=== PATIENT | female | born 1990 | race African-American/Black ===

== ENCOUNTER 2018-10-27 07:50 | Day surgery (SDC) | payer OTHER ==
[2018-10-27] MEDS ORDERED: Ringers Lactate 1,000 ML IV ONE (08:22)
[2018-10-27 08:43] LABS: Specific Gravity >= 1.030 (1.005-1.030)
[2018-10-27 08:55] VITALS: O2SAT 100
[2018-10-27] MEDS ORDERED: PROPOFOL 200 MG/20 ML VIAL IV ONE (09:40)
--- NOTE | 2018-10-27 11:41 | ENDO RPT ---
[address], [address] COLONOSCOPY PROCEDURE REPORT EXAM DATE: 10/27/2018 PATIENT NAME: Anay Agee MR #: [id number] BIRTHDATE: 1990 ATTENDING: Karlos Figueroa Dr STATUS: outpatient MEDICAL COMMUNICATION SPECIALIST: Kay Mancia RN, Viri Cortez RN, and Maria Esther Márquez INDICATIONS: The patient is a 28 yr old Female here for a colonoscopy due to abdominal pain PROCEDURE PERFORMED: Colonoscopy MEDICATIONS: Per Anesthesia. ESTIMATED BLOOD LOSS: None CONSENT: The patient understands the risks and benefits of the procedure and understands that these risks include, but are not limited to: sedation, allergic reaction, infection, perforation and/or bleeding. Alternative means of evaluation and treatment include, among others: physical exam, x-rays, and/or surgical intervention. The patient elects to proceed with this endoscopic procedure. DESCRIPTION OF PROCEDURE: During intra-op preparation period all mechanical medical equipment was checked for proper function. Hand hygiene and appropriate measures for infection prevention was taken. Procedure, possible complications, alternatives including, but not limited to possibility of bleeding, perforation, tear, infection, sepsis, need for surgery, need for blood transfusion, were explained to the patient. After the risks, benefits and alternatives of the procedure were thoroughly explained, Informed consent was verified, confirmed and timeout was successfully executed by the treatment team. The patient was placed in the left lateral position. A digital rectal exam was performed and revealed no abnormalities of the rectum. After appropriate level of anesthesia, the scope was passed. The [id number] ([id number]) endoscope was introduced through the anus and advanced to the terminal ileum which was intubated for a short distance. The quality of the prep was good. The instrument was then slowly withdrawn as the colon was fully examined. Scope withdrawal time was 7 minutes. COLON FINDINGS: Small internal hemorrhoids were found. Retroflexed views revealed small hemorrhoids. The scope was then completely withdrawn from the patient and the procedure terminated. ADVERSE EVENTS: There were no complications. IMPRESSIONS: 1. Small internal hemorrhoids 2. Intubation to terminal ileum RECOMMENDATIONS: 1. fiber rich diet 2. await results of prior PCP ordered CT abdomen 3. 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
[2018-10-27 14:35] VITALS: BP 130/76; TEMP 97.5
== END 2018-10-27 11:22 | disposition home or self-care (01) ==
LOC: OR 07:50
PROVIDERS: ATTEND Internal Medicine Gastroenterology
PROC: 0DJD8ZZ Inspection of Lower Intestinal Tract, Via Natural or Artificial Opening Endoscopic (ICD-10-PCS; principal; 2018-10-27 10:00)
DX: R10.31 Right lower quadrant pain (principal); R10.32 Left lower quadrant pain; K64.8 Other hemorrhoids; E66.9 Obesity, unspecified; Z87.891 Personal history of nicotine dependence; Z68.42 Body mass index [BMI] 45.0-49.9, adult
CPT/HCPCS: 81025; J2704

== ENCOUNTER 2019-03-17 07:17 | Emergency (ER) | payer OTHER ==
[2019-03-17 08:38] LABS: Absolute Lymphocytes (CBC) 4.8 K/uL (0.7-4.9); Absolute Monocytes 0.5 K/uL (0.1-1.3); Absolute Neutrophil 2.2 K/uL (1.8-8.0); Basophils % 0.5 % (0-1.3); Eosinophils % 2.6 % (0-4.4); Hematocrit 38.8 % (36.0-45.0); Lymphocytes % 62.2 % (15.3-44.8); MPV 9.7 fL (7.6-11.3); Monocytes % 6.3 % (3.3-12.3); RBC Red Blood Cell Count 4.93 M/uL (3.86-4.86)
[2019-03-17 08:41] LABS: ALT/SGPT 33 U/L (12-78); AST/SGOT 18 U/L (15-37); Albumin 3.4 g/dL (3.4-5.0); Alkaline Phosphatase 57 U/L (45-117); BUN Blood Urea Nitrogen 11 mg/dL (7-18); Bicarbonate 27 mmol/L (21-32); Bilirubin Direct < 0.1 mg/dL (0-0.2); Bilirubin Total 0.2 mg/dL (0.2-1.0); Glucose Level 87 mg/dL (74-106); Lipase 234 U/L (73-393); Protein, Total 8.1 g/dL (6.4-8.2); Sodium Level 139 mmol/L (136-145)
[2019-03-17] MEDS ORDERED: MAGNE/ALUM HYDROXD 30 ML UCUP ONE (08:53)
[2019-03-17] MEDS ORDERED: LIDOCAINE VISCOUS 2% SOLN 15 ML UDC ONE (08:53)
--- NOTE | 2019-03-17 08:57 | RAD REPORT ---
EXAM DESCRIPTION: US - Abdomen Exam Limited - 03/17/2019 7:52 am CLINICAL HISTORY: ABD PAIN COMPARISON: No comparisons FINDINGS: The gallbladder demonstrates no gallstones. No pericholecystic fluid or gallbladder wall t hickening. The common bile duct is normal measuring 3 mm. The liver demonstrates no findings of intrahepatic biliary dilatation. IMPRESSION: Unremarkable examination.
[2019-03-17 09:27] LABS: Urine Blood 3+ (NEG); Urine Glucose NEGATIVE (NEG); Urine Protein NEGATIVE (NEG)
[2019-03-17 09:46] LABS: Urine Bacteria <20 /HPF (<20); Urine RBC >50 /HPF (NONE SEEN)
[2019-03-17 09:47] LABS: Urine Culture Reflex Order NOT NEEDED
--- NOTE | 2019-03-17 10:02 | RAD REPORT ---
EXAM DESCRIPTION: CTAbdomen Pelvis W Contrast - 03/17/2019 9:34 am CLINICAL HISTORY: Abdominal pain. ABD PAIN COMPARISON: Abdomen Pelvis W Contrast dated 09/30/2018 TECHNIQUE: Biphasic CT imaging of the abdomen and pelvis was performed with 100 ml non-ionic IV cont rast. All CT scans are performed using dose optimization technique as appropriate and may include automated exposure control or mA/KV adjustment according to patient size. FINDINGS: The lung bases are clear. The liver, spleen, pancreas, adrenal glands and kidneys are within normal limits. No bowel obstruction, free air, free fluid or abscess. The appendix is normal. No evidence of signi ficant lymphadenopathy. No suspicious bony findings. IMPRESSION: No acute intra-abdominal or pelvic finding.
--- NOTE | 2019-03-17 10:17 | ER ---
Nurse's Notes [facility] Name: Anay Agee Age: 29 yrs Sex: Female : 1990 Arrival Date: 03/17/2019 Time: 07:21 Bed 15 Private MD: John Harper H Diagnosis: Epigastric pain Presentation: 03/17 07:25 Presenting complaint: Patient states: i started having abdominal (epigastric area, R hj upper and L upper abd) since the weekend and it doesn't go away, denies N/V; denies fever and chills; denies diarrhea/ constipation;. Transition of care: patient was not received from another setting of care. Onset of symptoms was March 17, 2019. Risk Assessment: Do you want to hurt yourself or someone else? Patient reports no desire to harm self or others. Initial Sepsis Screen: Does the patient meet any 2 criteria? No. Patient's initial sepsis screen is negative. Does the patient have a suspected source of infection? No. Patient's initial sepsis screen is negative. Care prior to arrival: None. 07:25 Method Of Arrival: Ambulatory 07:25 Acuity: SHER 3 hj Triage Assessment: 07:28 General: Appears in no apparent distress. uncomfortable, obese, Behavior is calm, hj cooperative, appropriate for age. Pain: Complains of pain in epigastric area, right upper quadrant and left upper quadrant. 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 - Social history:: Smoking status: Patient/guardian denies using tobacco, Patient uses alcohol. - Ebola Screening: : Patient negative for fever greater than or equal to 101.5 degrees Fahrenheit, and additional compatible Ebola Virus Disease symptoms Patient denies exposure to infectious person Patient denies travel to an Ebola-affected area in the 21 days before illness onset. - Family history:: not pertinent. - Hospitalizations: : No recent hospitalization is reported. Screenin:28 Abuse screen: Denies threats or abuse. Denies injuries from another. Nutritional hj screening: No deficits noted. Tuberculosis screening: No symptoms or risk factors identified. Fall Risk None identified. Assessment: 07:29 GI: Bowel sounds Abd is soft. hj 08:22 General: Appears in no apparent distress. comfortable, Behavior is calm, cooperative, ph appropriate for age, Denies fever. Pain: Complains of pain in epigastric area. Neuro: Level of Consciousness is awake, alert, obeys commands, Oriented to person, place, time, situation. Cardiovascular: Capillary refill < 3 seconds in bilateral fingers Patient's skin is warm and dry. Respiratory: Airway is patent Respiratory effort is even, unlabored, Respiratory pattern is regular, symmetrical. GI: Abdomen is round non-distended, Bowel sounds present X 4 quads. Abd is soft X 4 quads Reports epigastric pain, nausea, Patient currently denies diarrhea, vomiting. : No signs and/or symptoms were reported regarding the genitourinary system. Derm: Skin is intact, is healthy with good turgor, Skin is pink, warm \T\ dry. Musculoskeletal: Circulation, motion, and sensation intact. Range of motion: intact in all extremities. 09:30 Reassessment: Patient appears in no apparent distress at this time. Patient and/or ph family updated on plan of care and expected duration. Pain level reassessed. Patient is alert, oriented x 3, equal unlabored respirations, skin warm/dry/pink. Pt resting quietly, awaiting CT results. 10:30 Reassessment: Patient appears in no apparent distress at this time. Patient and/or ph family updated on plan of care and expected duration. Pain level reassessed. Patient is alert, oriented x 3, equal unlabored respirations, skin warm/dry/pink. Pt resting quietly. Vital Signs: 07:27 BP 127 / 84; Pulse 88; Resp 16; Temp 98.5(O); Pulse Ox 100% on R/A; Weight 142.43 kg; hj Height 5 ft. 6 in. (167.64 cm); 08:24 BP 122 / 78; Pulse 81; Resp 16; Pulse Ox 99% on R/A; ph 10:00 BP 130 / 69; Pulse 83; Resp 18; Pulse Ox 96% on R/A; ph 10:45 BP 127 / 64; Pulse 82; Resp 18; Temp 97.9; Pulse Ox 99% on R/A; ph 07:27 Body Mass Index 50.68 (142.43 kg, 167.64 cm) ED Course: 07:21 Patient arrived in ED. mr 07:21 John Harper DO is Private Physician. mr 07:21 Tommy Malcolm MD is Attending Physician. rn 07:27 Triage completed. hj 07:29 Arm band placed on. hj 07:30 Patient has correct armband on for positive identification. Placed in gown. Bed in low hj position. Call light in reach. Side rails up X 1. 07:38 Viri Leavitt, RN is Primary Nurse. ph 07:53 US Abdomen Limited In Process Unspecified. EDMS 08:00 Inserted saline lock: 20 gauge in right antecubital area, using aseptic technique. ph Blood collected. 09:34 CT Abd/Pelvis - IV Contrast Only In Process Unspecified. EDMS 10:00 No provider procedures requiring assistance completed. ph 10:45 IV discontinued. ph Administered Medications: 08:45 Drug: GI Cocktail without - (Maalox Suspension 30 ml, Lidocaine Liquid 2 % 15 ph ml) Route: PO; 10:43 Follow up: Response: No adverse reaction ph Outcome: 10:16 Discharge ordered by . rn 10:44 Patient left the ED. ph 10:44 Discharged to home ambulatory. ph 10:44 Condition: good 10:44 Discharge instructions given to patient, Instructed on discharge instructions, follow up and referral plans. Demonstrated understanding of instructions, follow-up care. Signatures: Dispatcher [employer] EDFL Elver Leila mr Tommy Malcolm MD MD rn Hall, Patricia, RN RN Yandel Lazaro RN RN hj Corrections: (The following items were deleted from the chart) 07:32 07:27 142.43 kg; Height 5 ft. 6 in.; BMI: 50.6; hj
--- NOTE | 2019-03-17 10:17 | EDPHYS ---
Physician Documentation [facility] Name: Anay Agee Age: 29 yrs Sex: Female : 1990 Arrival Date: 03/17/2019 Time: 07:21 Bed 15 Private MD: John Harper H ED Physician Tommy Malcolm HPI: 03/17 07:27 This 29 yrs old Black Female presents to ER via Ambulatory with complaints of Abdominal rn Pain. 07:27 The patient presents with abdominal pain in the epigastric area. Onset: The rn symptoms/episode began/occurred 3 day(s) ago. The symptoms do not radiate. Associated signs and symptoms: none. Pertinent negatives: nausea and vomiting, anorexia, blood in stools, chest pain, diarrhea, fever, shortness of breath, vomiting, vomiting blood. The symptoms are described as crampy. Modifying factors: The symptoms are alleviated by nothing, the symptoms are aggravated by nothing. Severity of pain: At its worst the pain was moderate in the emergency department the pain has improved. The patient has not experienced similar symptoms in the past. The patient has not recently seen a physician. 07:27 Reports intermittent epigastric cramping, no vomiting/diarrhea, never had this before, rn not assoc with eating. No trauma. . 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 - Social history:: Smoking status: Patient/guardian denies using tobacco, Patient uses alcohol. - Ebola Screening: : Patient negative for fever greater than or equal to 101.5 degrees Fahrenheit, and additional compatible Ebola Virus Disease symptoms Patient denies exposure to infectious person Patient denies travel to an Ebola-affected area in the 21 days before illness onset. - Family history:: not pertinent. - Hospitalizations: : No recent hospitalization is reported. ROS: 07:27 Constitutional: Negative for fever, chills, and weight loss, Cardiovascular: Negative rn for chest pain, palpitations, and edema, Respiratory: Negative for shortness of breath, cough, wheezing, and pleuritic chest pain, Abdomen/GI: + abd pain, negative for vomiting/diarrhea/blood in stool : Negative for injury, bleeding, discharge, and swelling, MS/Extremity: Negative for injury and deformity, Skin: Negative for injury, rash, and discoloration, Neuro: Negative for headache, weakness, numbness, tingling, and seizure. Exam: 07:27 Constitutional: This is a well developed, well nourished patient who is awake, alert, rn and in no acute distress. Head/Face: Normocephalic, atraumatic. ENT: MMM Respiratory: No increased work of breathing, no retractions or nasal flaring. Speaking full sentences Abdomen/GI: soft, mild epigastric and RUQ tenderness, no rebound Skin: Warm, dry MS/ Extremity: Moves all extremities Neuro: Awake and alert, GCS 15. Cranial nerves II-XII grossly intact. Cerebellar exam normal. Normal gait. Vital Signs: 07:27 BP 127 / 84; Pulse 88; Resp 16; Temp 98.5(O); Pulse Ox 100% on R/A; Weight 142.43 kg; hj Height 5 ft. 6 in. (167.64 cm); 08:24 BP 122 / 78; Pulse 81; Resp 16; Pulse Ox 99% on R/A; ph 10:00 BP 130 / 69; Pulse 83; Resp 18; Pulse Ox 96% on R/A; ph 10:45 BP 127 / 64; Pulse 82; Resp 18; Temp 97.9; Pulse Ox 99% on R/A; ph 07:27 Body Mass Index 50.68 (142.43 kg, 167.64 cm) MDM: 07:21 Patient medically screened. rn 10:13 Differential diagnosis: cholecystitis, Cholelithiasis, gastritis, gastroesophageal rn reflux disease, non-specific abd pain, pancreatitis, Peptic Ulcer Disease, urinary tract infection. Data reviewed: vital signs, nurses notes, radiologic studies, CT scan, ultrasound, and as a result, I will discharge patient. Counseling: I had a detailed discussion with the patient and/or guardian regarding: the historical points, exam findings, and any diagnostic results supporting the discharge/admit diagnosis, lab results, radiology results, the need for outpatient follow up, to return to the emergency department if symptoms worsen or persist or if there are any questions or concerns that arise at home. Response to treatment: the patient's symptoms have mildly improved after treatment, and as a result, I will discharge patient. Special discussion: Based on the patient's Hx, exam, and Dx evaluation, there is no indication for emergent surgery or inpatient Tx. It is understood by the patient/guardian that if the Sx's persist or worsen they need to return immediately for re-evaluation. I discussed with the patient/guardian in detail that at this point there is no indication for admission to the hospital. It is understood, however, that if the symptoms persist or worsen the patient needs to return immediately for re-evaluation. 03/17 07:27 Order name: Basic Metabolic Panel; Complete Time: 08:58 rn 03/17 07:27 Order name: CBC with Diff rn 03/17 07:27 Order name: Hepatic Function; Complete Time: 08:58 rn 03/17 07:27 Order name: Lipase; Complete Time: 08:58 rn 03/17 07:27 Order name: Urine Microscopic Only; Complete Time: 10:05 rn 03/17 08:41 Order name: Manual Differential EDMS 03/17 07:27 Order name: IV Saline Lock; Complete Time: 07:32 rn 03/17 07:27 Order name: Labs collected and sent; Complete Time: 08:56 rn 03/17 07:27 Order name: Urine Test (obtain specimen); Complete Time: 08:56 rn 03/17 07:27 Order name: US Abdomen Limited; Complete Time: 08:58 rn 03/17 09:08 Order name: Urine Dipstick--Ancillary (enter results); Complete Time: 10:05 bd 03/17 09:08 Order name: Urine --Ancillary (enter results); Complete Time: 10:05 bd 03/17 09:21 Order name: CT Abd/Pelvis - IV Contrast Only; Complete Time: 10:05 rn 03/17 07:27 Order name: Urine Dipstick-Ancillary (obtain specimen); Complete Time: 08:56 rn Administered Medications: 08:45 Drug: GI Cocktail without - (Maalox Suspension 30 ml, Lidocaine Liquid 2 % 15 ph ml) Route: PO; 10:43 Follow up: Response: No adverse reaction ph Disposition: 03/17/19 10:16 Discharged to Home. Impression: Epigastric pain. - Condition is Stable. - Discharge Instructions: Abdominal Pain, Adult. - Medication Reconciliation Form, Thank You Letter, Antibiotic Education, Prescription Opioid Use form. - Follow up: Private Physician; When: As needed; Reason: Recheck today's complaints, Re-evaluation by your physician. - Problem is new. - Symptoms have improved. Signatures: Dispatcher [employer] EDMS Tommy Malcolm MD MD rn Hall, Patricia, RN RN Yandel Lazaro RN RN Corrections: (The following items were deleted from the chart) 10:44 10:16 03/17/2019 10:16 Discharged to Home. Impression: Epigastric pain. Condition is ph Stable. Forms are Medication Reconciliation Form, Thank You Letter, Antibiotic Education, Prescription Opioid Use. Follow up: Private Physician; When: As needed; Reason: Recheck today's complaints, Re-evaluation by your physician. Problem is new. Symptoms have improved. rn
[2019-03-17 10:47] LABS: Platelet Estimate ADEQ
[2019-03-17 10:48] LABS: Blood Morphology Comment NOT SEEN (NOT SEEN)
[2019-03-17 10:50] VITALS: TEMP 98.5
[2019-03-17 10:53] VITALS: BP 130/69; O2SAT 96
== END 2019-03-17 10:44 | disposition home or self-care (01) ==
LOC: ER 07:17
DX: R10.13 Epigastric pain (principal)
CPT/HCPCS: 36415; 74177; 76705; 80048; 80076; 81003; 81015; 81025; 83690; 85025; 99284; Q9967

== ENCOUNTER 2024-10-14 20:37 | Emergency (ER) | payer BC ==
[2024-10-14] MEDS ORDERED: KETOROLAC 10 MG TAB ONE (21:13)
[2024-10-14] MEDS ORDERED: CODEINE 30MG/APAP 300MG TAB ONE (21:13)
[2024-10-14] MEDS ORDERED: PROMETHAZINE 25 MG TABLET ONE (21:13)
[2024-10-14 21:33] LABS: Specific Gravity 1.021 (1.005-1.030)
--- NOTE | 2024-10-14 21:54 | RAD REPORT ---
EXAMINATION: XR LEFT FOOT CLINICAL INDICATION: foot pain TECHNIQUE: Multiple projections of the left foot were obtained. COMPARISON: No prior exam. FINDINGS: No bone or joint abnormality seen. Calcaneal spurs are present, larger posterior.
--- NOTE | 2024-10-14 21:54 | RAD REPORT ---
EXAMINATION: XR LEFT ANKLE CLINICAL INDICATION: Female, 34 years old. left ankle pain TECHNIQUE: 3 view radiograph of the left ankle were obtained. COMPARISON: No prior exam. FINDINGS: No bone or joint abnormality seen. Moderate posterior and small plantar calcaneal spur.
--- NOTE | 2024-10-14 23:16 | EDPHYS ---
Physician Documentation [facility] Name: Anay Yan Age: 34 yrs Sex: Female : 1990 Arrival Date: 10/14/2024 Time: 20:37 Bed 8 Private MD: ED Physician Greg Barrow HPI: 10/14 20:53 This 34 yrs old Black Female presents to ER via Unassigned with complaints of Ankle sp4 Injury. 23:19 Patient presents with acute twisted left ankle associated with left ankle left foot sp4 pain described as a dorsal pain. There is significant pain with ambulation. 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 - Infectious Disease History:: Denies. - Social history:: Smoking status: Patient denies any tobacco usage or history of. Patient uses alcohol, occasionally. Patient/guardian denies using street drugs. - Family history:: not pertinent. ROS: 23:19 Constitutional: Negative for fever, chills, and weight loss, positive for left ankle sp4 pain, positive left foot pain 23:19 All other systems are negative, Exam: 23:19 Constitutional: This is a well developed, well nourished patient who is awake, alert, sp4 and in no acute distress. Head/Face: Normocephalic, atraumatic. Eyes: Pupils equal round and reactive to light, extra-ocular motions intact. Lids and lashes normal. Conjunctiva and sclera are not injected. Cornea within normal limits. Periorbital areas with no swelling, redness, or edema. ENT: Nares patent. No nasal discharge, no septal abnormalities noted. Tympanic membranes are normal and external auditory canals are clear. Oropharynx with no redness, swelling, or masses, exudates, or evidence of obstruction, uvula midline. Mucous membranes moist. Neck: Trachea midline, no thyromegaly or masses palpated, and no cervical lymphadenopathy. Supple, full range of motion without nuchal rigidity, or vertebral point tenderness. Chest/axilla: Normal chest wall appearance and motion. Nontender with no deformity. No lesions are appreciated. Cardiovascular: Regular rate and rhythm with a normal S1 and S2. No gallops, murmurs, or rubs. Normal PMI, no JVD. No pulse deficits. Respiratory: Lungs have equal breath sounds bilaterally, clear to auscultation and percussion. No rales, rhonchi or wheezes noted. No increased work of breathing, no retractions or nasal flaring. Abdomen/GI: Soft, with normal bowel sounds. No distension or tympany. No guarding or rebound. No evidence of tenderness throughout. Back: No spinal tenderness. No costovertebral tenderness. Skin: Warm, dry with normal turgor. Normal color with no rashes, no lesions, and no evidence of cellulitis. MS/ Extremity: Pulses equal, no cyanosis. Neurovascular intact. Full, normal range of motion. Positive for left dorsal ankle and foot tenderness. Positive left anterior ankle tenderness. Preserved peripheral pulses. No significant swelling or deformity. Neuro: Awake and alert, GCS 15, oriented to person, place, time, and situation. Cranial nerves II-XII grossly intact. Motor strength 5/5 in all extremities. Sensory grossly intact. Psych: Awake, alert, with orientation to person, place and time. Behavior, mood, and affect are within normal limits Vital Signs: 21:00 BP 134 / 87; Pulse 81; Resp 16; Temp 97.8(O); Weight 142.88 kg (R); Height 5 ft. 6 in. lg3 (R); Pain 10/10; 22:55 BP 116 / 67; Pulse 67; Resp 18; Pulse Ox 100% on R/A; af3 21:00 Body Mass Index 50.84 (142.88 kg, 167.64 cm) lg3 21:00 Pain Scale: Adult lg3 Helen Coma Score: 23:19 Eye Response: spontaneous(4). Motor Response: obeys commands(6). Verbal Response: sp4 oriented(5). Total: 15. Procedures: 23:18 Splinting: Splint applied to left calf, left Achilles and left heel using Ortho 3D sp4 boot, applied by myself. Examined by me, post splint application: neurovascular intact, 2+ distal pulses palpable, brisk capillary refill noted, Patient tolerated well, Advised left ankle boot for the next 2 weeks. Provided crutches to take the weight off the left ankle. MDM: 21:02 Medical Screening Exam initiated sp4 23:11 ED course: EXAMINATION: XR LEFTANKLE CLINICAL INDICATION: Female, 34 years old. left sp4 ankle pain TECHNIQUE: 3 view radiograph of the left ankle were obtained. COMPARISON: No prior exam. FINDINGS: No bone or joint abnormality seen. Moderate posterior and small plantar calcaneal spur. . ED course: EXAMINATION: XR LEFT FOOT CLINICAL INDICATION: foot pain TECHNIQUE: Multiple projections of the left foot were obtained. COMPARISON: No prior exam. FINDINGS: No bone or joint abnormality seen. Calcaneal spurs are present, larger posterior.. 23:20 Differential diagnosis: fracture, sprain, arthritis, gout, cellulitis. Data reviewed: sp4 vital signs, nurses notes, old medical records, lab test result(s), UPT: negative radiologic studies, plain films. Consideration of Admission/Observation Escalation of care including admission/observation considered. ED course: Stable for discharge home after boot application.. 10/14 21:11 Order name: Test, Urine; Complete Time: 23:05 4 10/14 21:11 Order name: Foot Left 3 View XRAY; Complete Time: 23:05 sp4 10/14 21:11 Order name: Ankle Left 3 View XRAY; Complete Time: 23:05 4 10/14 23:12 Order name: Orthopedic shoe: Left leg Ortho boot applied by MD ; Complete Time: 23:14 sp4 10/14 23:12 Order name: Crutches; Complete Time: 23:16 sp4 Administered Medications: 21:15 Drug: Acetaminophen-Codeine PO (300 mg-30 mg) 2 tabs PO once; RASS on ADMIN: Combtv4, lg3 Very Agttd3, Agttd2, Rstlss1, AlertClm0, Drwsy-1, Lt Sdtn-2, Mod Sdtn-3, Dp Sdtn-4, UnArsble-5 Route: PO; 23:16 Follow up: Response: No adverse reaction; Marked relief of symptoms; Pain is decreased lg3 21:15 Drug: Ketorolac PO 10 mg PO once Route: PO; lg3 23:16 Follow up: Response: No adverse reaction; Marked relief of symptoms; Pain is decreased lg3 21:15 Drug: Promethazine PO 25 mg PO once Route: PO; lg3 23:16 Follow up: Response: No adverse reaction lg3 Disposition Summary: 10/14/24 23:15 Discharge Ordered Notes: We recommend left ankle boot for 2 weeks Location: Home sp4 Problem: new sp4 Symptoms: have improved sp4 Condition: Stable sp4 Diagnosis - Acute left foot sprain, acute left ankle sprain sp4 Followup: sp4 - With: Private Physician - When: 10 - 14 days - Reason: Recheck today's complaints Discharge Instructions: - Discharge Summary Sheet sp4 - Ankle Sprain, [id number] sp4 Forms: - Patient Portal Instructions sp4 Prescriptions: - Tramadol 50 mg Oral tablet - take 1 tablet ORAL route every 8 hours as needed; 20 tablet; Refills: 0, sp4 Product Selection Permitted Signatures: Dispatcher [employer] Janett Spivey RN RN lg3 Greg Barrow MD MD sp4
--- NOTE | 2024-10-14 23:16 | ER ---
Nurse's Notes [facility] [place] Name: Anay Yan Age: 34 yrs Sex: Female : 1990 Arrival Date: 10/14/2024 Time: 20:37 Bed 8 Private MD: Diagnosis: Acute left foot sprain, acute left ankle sprain Presentation: 10/14 21:00 Chief complaint: Patient states: fall from standing position stepping off curb. pain to lg3 left foot and right ankle. Coronavirus screen: Client denies travel out of the [place] in the last 14 days. At this time, the client does not indicate any symptoms associated with coronavirus-19. Ebola Screen: No symptoms or risks identified at this time. Initial Sepsis Screen: Does the patient meet any 2 criteria? No. Patient's initial sepsis screen is negative. Does the patient have a suspected source of infection? No. Patient's initial sepsis screen is negative. Risk Assessment: Do you want to hurt yourself or someone else? Patient reports no desire to harm self or others. Onset of symptoms was October 14, 2024. 21:00 Method Of Arrival: Wheelchair lg3 21:00 Acuity: SHER 4 lg3 Triage Assessment: 21:02 General: Appears in no apparent distress. comfortable, Behavior is calm, cooperative. lg3 Pain: Complains of pain in right foot and left foot. EENT: No deficits noted. No signs and/or symptoms were reported regarding the EENT system. Neuro: No deficits noted. Goldstein Agitation-Sedation Scale (RASS): 0 - Alert and Calm Level of Consciousness is awake, alert, obeys commands, Oriented to person, place, time, situation. Cardiovascular: No deficits noted. Denies chest pain, shortness of breath, Capillary refill < 3 seconds Clubbing of nail beds is absent JVD is absent Patient's skin is warm and dry. Respiratory: No deficits noted. Airway is patent Respiratory effort is even, unlabored, Respiratory pattern is regular, symmetrical. GI: No deficits noted. No signs and/or symptoms were reported involving the gastrointestinal system. : No signs and/or symptoms were reported regarding the genitourinary system. Derm: No deficits noted. No signs and/or symptoms reported regarding the dermatologic system. Skin is intact, is healthy with good turgor, Skin is dry, Skin is normal, Skin temperature is warm. Musculoskeletal: Circulation, motion, and sensation intact. Range of motion: intact in all extremities, Swelling present in left foot and right ankle Reports pain in left foot and right ankle. 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 - Infectious Disease History:: Denies. - Social history:: Smoking status: Patient denies any tobacco usage or history of. Patient uses alcohol, occasionally. Patient/guardian denies using street drugs. - Family history:: not pertinent. Screenin:15 [facility] ED Fall Risk Assessment (Adult) History of falling in the last 3 months, lg3 including since admission Yes- single mechanical fall (1 pt) Confusion or Disorientation No (0 pts) Intoxicated or Sedated No (0 pts) Impaired Gait No (0 pts) Mobility Assist Device Used No (0 pt) Altered Elimination No (0 pt) Score/Fall Risk Level 0 - 2 = Low Risk Oriented to surroundings, Maintained a safe environment, Educated pt \T\ family on fall prevention, incl call for assistance when getting out of bed, Assessed \T\ reinforced patient's understanding of fall precautions. Abuse screen: Denies threats or abuse. Denies injuries from another. Nutritional screening: No deficits noted. Tuberculosis screening: No symptoms or risk factors identified. Assessment: 23:15 General: see triage assessment. lg3 23:16 Reassessment: Patient appears in no apparent distress at this time. No changes from lg3 previously documented assessment. Patient and/or family updated on plan of care and expected duration. Pain level reassessed. Patient is alert, oriented x 3, equal unlabored respirations, skin warm/dry/pink. Vital Signs: 21:00 BP 134 / 87; Pulse 81; Resp 16; Temp 97.8(O); Weight 142.88 kg (R); Height 5 ft. 6 in. lg3 (R); Pain 10/10; 22:55 BP 116 / 67; Pulse 67; Resp 18; Pulse Ox 100% on R/A; af3 21:00 Body Mass Index 50.84 (142.88 kg, 167.64 cm) lg3 21:00 Pain Scale: Adult lg3 Helen Coma Score: 23:19 Eye Response: spontaneous(4). Motor Response: obeys commands(6). Verbal Response: sp4 oriented(5). Total: 15. ED Course: 20:48 Patient arrived in ED. gm2 20:53 Greg Barrow MD is Attending Physician. sp4 21:02 Triage completed. lg3 21:02 Arm band placed on right wrist. lg3 21:10 Patient has correct armband on for positive identification. Bed in low position. Call lg3 light in reach. Side rails up X 1. Client placed on continuous cardiac and pulse oximetry monitoring. NIBP monitoring applied. Door closed. Noise minimized. Warm blanket given. Pillow given. 21:10 Patient maintains SpO2 saturation greater than 95% on room air. lg3 21:20 MELYSSA MINOR RN is Primary Nurse. dd2 21:28 Test, Urine Sent. dd2 21:51 Foot Left 3 View XRAY In Process Unspecified. EDMS 21:51 Ankle Left 3 View XRAY In Process Unspecified. EDMS 23:30 No provider procedures requiring assistance completed. Patient did not have IV access lg3 during this emergency room visit. Crutch training done. Administered Medications: 21:15 Drug: Acetaminophen-Codeine PO (300 mg-30 mg) 2 tabs PO once; RASS on ADMIN: Combtv4, lg3 Very Agttd3, Agttd2, Rstlss1, AlertClm0, Drwsy-1, Lt Sdtn-2, Mod Sdtn-3, Dp Sdtn-4, UnArsble-5 Route: PO; 23:16 Follow up: Response: No adverse reaction; Marked relief of symptoms; Pain is decreased lg3 21:15 Drug: Ketorolac PO 10 mg PO once Route: PO; lg3 23:16 Follow up: Response: No adverse reaction; Marked relief of symptoms; Pain is decreased lg3 21:15 Drug: Promethazine PO 25 mg PO once Route: PO; lg3 23:16 Follow up: Response: No adverse reaction lg3 Medication: 23:31 VIS not applicable for this client. lg3 Outcome: 23:15 Discharge ordered by . magdiel 23:30 Discharged to home via wheelchair, with significant other, lg3 23:30 Condition: stable 23:30 Discharge instructions given to patient, Instructed on discharge instructions, follow up and referral plans. medication usage, crutch walking, Demonstrated understanding of instructions, follow-up care, medications, crutch walking, Prescriptions given X 1, 23:31 Patient left the ED. lg3 Signatures: Dispatcher [employer] EDJanett Roberto RN RN lg3 Greg Barrow MD MD sp4 Kelle Contreras Ashley af3 MELYSSA MINOR RN RN dd2 Corrections: (The following items were deleted from the chart) 23:15 23:15 General: see triage assessmenr. lg3 lg3
[2024-10-15 06:58] VITALS: TEMP 97.8
[2024-10-15 07:00] VITALS: BP 116/67; O2SAT 100
== END 2024-10-14 23:31 | disposition home or self-care (01) ==
LOC: ER 20:37
DX: S93.402A Sprain of unspecified ligament of left ankle, initial encounter (principal); S93.602A Unspecified sprain of left foot, initial encounter; W10.1XXA Fall (on)(from) sidewalk curb, initial encounter; F41.9 Anxiety disorder, unspecified; R73.03 Prediabetes; Z79.85 Long-term (current) use of injectable non-insulin antidiabetic drugs; Z79.899 Other long term (current) drug therapy
CPT/HCPCS: 81025; 73630; 73610; 99284; Q0169